=== PATIENT | female | born 1955 | race Caucasian/White ===

== ENCOUNTER 2018-02-12 17:04 | Inpatient (IN) | payer OTHER ==
[~2018-02-12] VITALS: Ht 167.6 cm; Wt 111.6 kg
--- NOTE | 2018-02-12 18:45 | NUR ---
GPS/RN-NOTES ADMITTED 63 Y.O FEMALE PATIENT FROM [facility]. PATIENT ON 5150 FOR DTS. PER HOLD PATIENT STATED THAT SHE HAD A THOUGHT OF SUICIDE BUT DIDN'T KNOW HOW TO DO IT. UPON FACE TO FACE ASSESSMENT PATIENT DENIES SI/HI NO VISUAL/AUDITORY HALLUCINATIONS AT THIS TIME.CONTRABAND DONE ALL ADMITTING PAPERS WAS SIGN BY THE PATIENT. MRSA SWAB DONE AND SEND TO LAB. CHARGE NURSE MADE DR. STEEL ( PSYCHIATRIST) MADE AWARE OF PATIENT ADMISSION IN THE UNIT. ALSO CLINTON DICKSON ( POSTIE) MADE AWARE. PATIENT'S RIGHT WAS REVIEWED WITH THE PATIENT AND BOOKLET WAS GIVEN TO HER. PATIENT WAS ORIENTED IN THE UNIT AND UNIT POLICIES. ENDORSE TO INCOMING NURSE FOR CONTINUITY OF CARE AND THE ADMISSION PROCESS.
[2018-02-12] MEDS ORDERED: ZOLPIDEM TARTRATE 10 MG TABLET PO PRN (19:00)
[2018-02-12] MEDS ORDERED: MAG HYDROX/AL HYDROX/SIMETH 30 ML UDC PO PRN (19:00)
[2018-02-12] MEDS ORDERED: MAGNESIUM HYDROXIDE 30 ML UDC PO PRN (19:00)
[2018-02-12] MEDS ORDERED: ACETAMINOPHEN 325 MG TABLET PO PRN (19:00)
[2018-02-12] MEDS ORDERED: LORAZEPAM 0.5 MG TABLET PO PRN (19:00)
[2018-02-12] MEDS ORDERED: BENA40TA8 PO (19:14)
[2018-02-12] MEDS ORDERED: DILT240C53 PO (19:14)
[2018-02-12] MEDS ORDERED: ASPI-1169 PO (19:14)
[2018-02-12] MEDS ORDERED: HYDR25TA4 PO (19:14)
[2018-02-12] MEDS ORDERED: POTA20TA10 PO (19:14)
--- NOTE | 2018-02-12 19:30 | NUR ---
GPS ADMISSION NOTE, RECEIVED PATIENT FROM [facility]. PATIENT ARRIVED ON THIS UNIT AT 1845. PATIENT ADMITTED ON A 5150 HOLD FOR DTS. PER HOLD PATIENT STATED THAT SHE HAS HAD THOUGHTS OF SUICIDE BUT DIDN'T KNOW HOW SHE WAS GOING TO DO IT. PATIENT IS UNABLE TO CONTRACT FOR SAFETY AT THIS TIME. THE 5150 WAS REVIEWED AND THE DOCUMENTATION IN THE 5150 HOLD APPEARS TO REFLECT THE PRESENTATION OF THE PATIENT. UPON FACE TO FACE ASSESSMENT PATIENT IS CURRENTLY LYING IN BED AWAKE, HAS NO S/S OR COMPLAINTS OF PAIN. PATIENT IS DISPLAYING NO S/S OF APPARENT DISTRESS. PATIENT BREATHING IS UNLABORED WITH EQUAL RISE AND FALL OF THE CHEST. PATIENT IS ALERT AND ORIENTATED X 4 ON ROOM AIR. PATIENT ASSISTED WITH TURING AND REPOSITIONING Q2HR AND PRN FOR COMFORT AND CIRCULATION. PATIENT HAS NO NEEDS AT THIS TIME. PATIENT IS NOTED TO BEING WITHDRAWN, DEPRESSED, DISHEVELED, DISORGANIZED, COOPERATIVE, AND NEEDS REDIRECTION. PATIENT DENIES SUICIDE IDEATIONS AND HOMICIDAL IDEATIONS AT THIS TIME. PATIENT IS UNDER THE PSYCHIATRIC CARE OF DR. STEEL AND THE MEDICAL CARE OF DR DICKSON. PATIENT BELONGINGS WERE INVENTORIED AND CHECKED FOR CONTRABAND. ALL CONTRABAND REMOVED AND STORED IN PATIENT HALLWAY LOCKER. PATIENT ADVANCED DIRECTIVES PREFERENCE, IMMUNIZATIONS QUESTIONER, NECESSARY PAPERWORK, AND SKIN ASSESSMENT COMPLETED. PATIENT ORIENTATED TO ROOM, FLOOR, AND STAFF WITH ALL QUESTIONS ANSWERED. PATIENT EDUCATED ON THE USE OF THE CALL WALLS. PATIENT BED SIDE RAILS ARE UP X 2 FOR SAFETY. PATIENT BED IS LOCKED, LOW AND I WILL CONTINUE TO MONITOR THIS PATIENT Q 15 MIN WITH THE HELP OF STAFF TO MAINTAIN SAFETY.
[2018-02-12 19:55] VITALS: BP 118/61
[2018-02-12] MEDS: ASPIRIN 81 MG TAB.CHEW PO SCH (23:29)
[2018-02-13 08:12] LABS: CHOLESTEROL 169 mg/dL (<200); HDL CHOLESTEROL 48 mg/dL (40-60); LDL 124 mg/dL (0-99); TRIGLYCERIDES 57 mg/dL (30-150)
[2018-02-13 08:20] VITALS: BP 122/85
[2018-02-13] MEDS: DILTIAZEM HCL CD 240 MG PO SCH (08:39)
[2018-02-13] MEDS: POTASSIUM CHLORIDE 20 MEQ TAB.PRT.SR PO SCH (08:40)
[2018-02-13] MEDS: ASPIRIN 81 MG TAB.CHEW PO SCH (08:40)
[2018-02-13] MEDS: BENAZEPRIL HCL 20 MG TABLET PO SCH ×2 (08:41→17:01)
[2018-02-13] MEDS: HYDROCHLOROTHIAZIDE 25 MG TABLET PO SCH (08:41)
[2018-02-13] MEDS: PAROXETINE HCL 10 MG TABLET PO SCH (14:53)
[2018-02-13 15:49] LABS: ALBUMIN 3.6 g/dL (3.4-5.0); BILIRUBIN,TOTAL 1.3 mg/dL (0.2-1.0); TOTAL PROTEIN, SERUM 6.7 g/dL (6.4-8.2)
[2018-02-13 16:07] VITALS: BP 106/64
[2018-02-13 20:00] VITALS: BP 120/69
[2018-02-14 08:00] VITALS: BP 116/63
[2018-02-14] MEDS: POTASSIUM CHLORIDE 20 MEQ TAB.PRT.SR PO SCH (08:05)
[2018-02-14] MEDS: DILTIAZEM HCL CD 240 MG PO SCH (08:05)
[2018-02-14] MEDS: ASPIRIN 81 MG TAB.CHEW PO SCH (08:05)
[2018-02-14] MEDS: HYDROCHLOROTHIAZIDE 25 MG TABLET PO SCH ×2 (08:05→08:12)
[2018-02-14] MEDS: BENAZEPRIL HCL 20 MG TABLET PO SCH (08:06)
[2018-02-14] MEDS: PAROXETINE HCL 10 MG TABLET PO SCH (08:06)
--- NOTE | 2018-02-14 10:01 | NUR ---
UR Review: TWAN F/UP with pts insurance provider [phone] for clinical review. TWAN was provided with the following contact information: [employer], Mariella Salcedo ext. [phone] for follow up. TWAN contacted [employer] and left a detailed clinical review over the phone. TWAN will follow up.
--- NOTE | 2018-02-14 11:11 | NUR ---
UR Review: TWAN received a call from [employer], Mariella Salcedo ext. [phone] who needed additional information regarding reason as to why pt was brought in as well as discharge. TWAN will discuss with Dr. Quesada for discharge planning purposes and call back the insurance provider with an update.
--- NOTE | 2018-02-14 11:34 | NUR ---
RN-CO: Patient was seen and examined by Dr Quesada with orders to discontinue hold and discharge patient today. Patient is calm and cooperative to care. Denied suicidal and homicidal ideation. Denied command hallucination. All valuables and belongings will be given back to the patient. She verbalized understanding about her discharge instructions.
--- NOTE | 2018-02-14 13:21 | NUR ---
Initial Discharge Plan: Pt resides at [address] [place] [address] [place] [address]; . Upon discharge pt would like to return home. Pt does not want any family/friends notified of her stay at [facility]. SW will help form a safe and proper discharge.
[2018-02-14 15:53] VITALS: BP 135/78
--- NOTE | 2018-02-14 16:20 | NUR ---
GPS/RN - Discharge Patient discharged home in stable condition, denies SI/HI, no c/o pain, not in any form of distress, VSS, ambulatory with steady gait. Reviewed discharge instructions with patient including medication management and follow up care with Dr. Christianson (PCP) and Levi Figueroa (Psychiatrist). Discharge papers signed by the patient and copy was given per protocol. Patient does not want any family and/or friends to be notified of her discharge. All belongings returned to the patient and she denies any missing items. Skin is intact, patient refused discharge photo to be taken. Patient endorsed to [facility] accordingly.
[2018-02-14] MEDS ORDERED: ATORVASTATIN 10 MG TABLET PO SCH (22:00)
== END 2018-02-14 16:20 | disposition home or self-care (01) | DRG 880 ==
LOC: GPS 17:04
PROVIDERS: ADMIT Psychiatry & Neurology Psychiatry; ATTEND Hospitalist
DX: F41.9 Anxiety disorder, unspecified (principal); E66.01 Morbid (severe) obesity due to excess calories; F32.9 Major depressive disorder, single episode, unspecified; I10 Essential (primary) hypertension; Z68.39 Body mass index [BMI] 39.0-39.9, adult; F41.0 Panic disorder [episodic paroxysmal anxiety]; E78.5 Hyperlipidemia, unspecified
CPT/HCPCS: 36415; 80053-TC; 80061-TC; 87081-TC